=== PATIENT | female | born 2000 | race Two or more races ===

== ENCOUNTER 2020-10-31 11:15 | Emergency (ER) | payer OTHER ==
[~2020-10-31] VITALS: Ht 152.4 cm; Wt 50.0 kg
[2020-10-31 13:09] VITALS: BP 109/58
== END 2020-10-31 13:35 | disposition left against medical advice (07) ==
LOC: EMS 11:25
DX: O26.891 Other specified pregnancy related conditions, first trimester (principal); Z11.1 Encounter for screening for respiratory tuberculosis; Z3A.01 Less than 8 weeks gestation of pregnancy
CPT/HCPCS: 71046; 71046-TC